=== PATIENT | male | born 1985 | race Caucasian/White ===

== ENCOUNTER 2019-06-09 19:59 | Emergency (ER) | payer SELFPAY ==
[2019-06-09] MEDS ORDERED: KETOROLAC 30 MG INJ IM (21:48)
[2019-06-09] MEDS ORDERED: OXYCODONE/ACETAMINOPHEN (5/325) TAB PO (22:00)
== END 2019-06-09 23:45 | disposition home or self-care (01) ==
LOC: FTE 19:59 → E/R 23:45
DX: S43.402A Unspecified sprain of left shoulder joint, initial encounter (principal); X50.0XXA Overexertion from strenuous movement or load, initial encounter; Y92.9 Unspecified place or not applicable
CPT/HCPCS: 29105; 99283-25